=== PATIENT | male | born 1965 | race Caucasian/White ===

== ENCOUNTER 2023-04-11 10:20 | Outpatient (CLI) | payer BC, SELFPAY ==
--- NOTE | 2023-04-11 10:30 | CT_ITS ---
WS: [id number] CT ABDOMEN PELVIS TECHNIQUE: Noncontrast CT of the abdomen and pelvis with coronal and sagittal reformatted images. CLINICAL INFORMATION: HEMATURIA COMPARISON: None. DLP: 1199.[address] scans at [facility] use at least one of these dose optimization techniques: automated e xposure control; mA and/or kV adjustment per patient size (includes targeted exams where dose is matc hed to clinical indication); or iterative reconstruction. FINDINGS: Bases are well aerated. A few tiny hepatic cysts. Hepatomegaly. Cholelithiasis. Normal GE junction. N oncontrast pancreas appears normal. Noncontrast spleen is normal. Adrenal glands are normal. No hydronephrosis in either kidney. No obstr ucting renal or ureteral calculi. Small 12 mm LEFT renal cyst. No hydronephrosis. Pelvic phleboliths. Normal caliber abdominal aorta. Aortic calcification. Mild diffuse bladder wall thickening can be seen with bladder obstruction or chronic cystitis. Slight ly eccentric bladder wall thickening anteriorly is nonspecific on this noncontrast study. This can be further evaluated with cystoscopy. CT/CT kidney stone [id number] IMPRESSION: 1. No obstructing renal or ureteral calculi. No hydronephrosis. 2. Cholelithiasis. This can be further evaluated with ultrasound. 3. Hepatomegaly. Recommend correlation with liver function tests. 4. A few tiny incidental hepatic cysts. 5. Eccentric bladder wall thickening anteriorly is nonspecific on this noncont rast study. This can be further evaluated with cystoscopy. 6. Prostate calcification. Mild prostate prominence measuring 4.3 cm.
== END 2023-04-11 10:21 | disposition home or self-care (01) ==
LOC: RAD 10:24
PROVIDERS: PCP Family Medicine; Visit Provider Family Medicine
DX: R31.9 Hematuria, unspecified (principal); K80.20 Calculus of gallbladder without cholecystitis without obstruction; R16.0 Hepatomegaly, not elsewhere classified; N28.1 Cyst of kidney, acquired; K76.89 Other specified diseases of liver; I87.8 Other specified disorders of veins
CPT/HCPCS: 74176

== ENCOUNTER 2024-08-07 05:49 | Outpatient (CLI) | payer BC, SELFPAY ==
--- NOTE | 2024-08-07 06:00 | CT_ITS ---
WS: [id number] LDCT LUNG CANCER SCREENING HISTORY: NICOTINE DEPENDENCE TECHNIQUE: Axial imaging performed from the apices to 1 cm below the costophrenic angles. Coronal and sagittal reformats are submitted with axial MIP series. All CT scans at [facility] use at least one of these dose optimization techniques: automated exposure control; mA and/or kV adjustment per patient size (includes targeted exams where dose is matched to clinical indication); or iterativ e reconstruction. DLP: 153.02 mGy.cm DIvol: Mean CTDIvol: 3.70 (mGy) COMPARISON: CT abdomen 04/11/2023 Diagnostic quality: Satisfactory Lungs: Lungs are clear and well aerated. No mass or pulmonary nodule. No endobronchial lesion. Heart: Normal size heart with no pericardial effusion.. Other findings: Very minimal atherosclerosis thoracic aorta. Normal size pulmonary artery. No adenopa thy. Tiny hepatic cysts are stable. No adrenal mass. Mild increase in thoracic kyphosis with large LE FT lateral bridging osteophytes. CT/CT lung screening [id number] IMPRESSION: LUNG-RADS: 1-Negative FOLLOW UP: 12 Month: Continue annual screening with LDCT OTHER FINDINGS (S MODIFIER): None.
== END 2024-08-07 05:50 | disposition home or self-care (01) ==
LOC: RAD 05:49
PROVIDERS: PCP Family Medicine; Visit Provider Family Medicine
DX: Z12.2 Encounter for screening for malignant neoplasm of respiratory organs (principal); F17.210 Nicotine dependence, cigarettes, uncomplicated; M25.78 Osteophyte, vertebrae
CPT/HCPCS: 71271

== ENCOUNTER → 2024-10-07 07:38 | Outpatient (BNVA) | payer BC, SELFPAY | PROVIDERS: PCP Family Medicine; Visit Provider Podiatrist Foot & Ankle Surgery | DX: M10.9 Gout, unspecified; S93.492D Sprain of other ligament of left ankle, subsequent encounter; M21.611 Bunion of right foot; X58.XXXD Exposure to other specified factors, subsequent encounter | CPT/HCPCS: 73630 ==